=== PATIENT | female | born 2000 | race Hispanic/Latino ===

== ENCOUNTER 2019-01-25 19:28 | Emergency (ER) | payer OTHER ==
[~2019-01-25] VITALS: Ht 157.5 cm; Wt 52.7 kg
[2019-01-25] MEDS ORDERED: PRENMIS3 PO (19:38)
[2019-01-26] MEDS ORDERED: METOCLOPRAMIDE INJ 10MG/2ML VIAL (J2765) IV ONE (00:15)
[2019-01-26] MEDS ORDERED: ACETAMINOPHEN TAB 650MG DOSE (2X325MG) PO ONE (00:15)
[2019-01-26] MEDS ORDERED: NS 1,000 ML IV ONE (00:15)
[2019-01-26 02:14] VITALS: BP 108/55
[2019-01-26 02:28] LABS: APPEARANCE, URINE CLOUDY (CLEAR); BACTERIA, URINE AUTO 1+ (NEGATIVE); BILIRUBIN, URINE AUTO NEGATIVE (NEGATIVE); BLOOD, URINE BLOOD NEGATIVE (NEGATIVE); COLOR, URINE YELLOW (YELLOW); GLUCOSE, URINE (UA) AUTO NEGATIVE (NEGATIVE); KETONE, URINE AUTO 2+ mg/dL (NEGATIVE); LEUKOCYTE ESTERASE, URINE AUTO TRACE (NEGATIVE); MUCUS, URINE SMALL (NEGATIVE); NITRITE, URINE AUTO NEGATIVE (NEGATIVE); PROTEIN, URINE AUTO NEGATIVE (NEGATIVE); RBC, URINE AUTO 5 /HPF (0-3); SQUAMOUS EPITHELIAL CELL UR AU 13 /HPF (0-6); UROBILINOGEN, URINE AUTO 0.2 mg/dL (0.0-2.0); WBC, URINE AUTO 6 /HPF (0-3)
== END 2019-01-26 02:54 | disposition home or self-care (01) ==
LOC: M ED 19:28
DX: R51 Headache (principal)
CPT/HCPCS: 81001; 96374; 99284; J2765

== ENCOUNTER 2019-03-30 03:28 | Emergency (ER) | payer OTHER ==
[~2019-03-30] VITALS: Ht 157.5 cm; Wt 59.1 kg
[~2019-03-30 03:28] MED LIST: PRENMIS3 PO
[2019-03-30] MEDS ORDERED: ONDANSETRON 4MG/2ML VIAL (J2405) IV ONE (05:00)
[2019-03-30 05:16] LABS: HEMATOCRIT 37.3 % (36.0-47.0); HEMOGLOBIN 12.5 g/dl (12.0-15.5); MEAN CORPUSCULAR HEMOGLOBIN 30.1 pg (27.0-33.0); MEAN CORPUSCULAR HGB CONC 33.5 g/dl (32.0-36.5); MEAN CORPUSCULAR VOLUME 89.9 fl (80.0-96.0); PLATELET COUNT, AUTOMATED 188 10^3/uL (150-450); RED BLOOD COUNT 4.15 10^6/uL (4.00-5.40); WHITE BLOOD COUNT 11.9 10^3/uL (4.0-10.0)
[2019-03-30 05:21] LABS: AMORPHOUS SEDIMENT SMALL (NEGATIVE); APPEARANCE, URINE TURBID (CLEAR); BACTERIA, URINE AUTO NEGATIVE (NEGATIVE); BILIRUBIN, URINE AUTO NEGATIVE (NEGATIVE); BLOOD, URINE BLOOD NEGATIVE (NEGATIVE); COLOR, URINE YELLOW (YELLOW); GLUCOSE, URINE (UA) AUTO 1+ mg/dL (NEGATIVE); KETONE, URINE AUTO NEGATIVE (NEGATIVE); LEUKOCYTE ESTERASE, URINE AUTO NEGATIVE (NEGATIVE); NITRITE, URINE AUTO NEGATIVE (NEGATIVE); PROTEIN, URINE AUTO NEGATIVE (NEGATIVE); RBC, URINE AUTO 1 /HPF (0-3); SPECIFIC GRAVITY URINE AUTO 1.014 (1.002-1.035); SQUAMOUS EPITHELIAL CELL UR AU 2 /HPF (0-6); UROBILINOGEN, URINE AUTO 0.2 mg/dL (0.0-2.0); WBC, URINE AUTO 2 /HPF (0-3)
[2019-03-30] MEDS ORDERED: MORPHINE 2 MG/ML 1ML VIAL (J2270) IV PRN (05:30)
[2019-03-30] MEDS ORDERED: NS 1,000 ML IV ONE (05:30)
[2019-03-30 05:44] LABS: ALBUMIN 2.9 GM/DL (3.2-5.2); ALT/SGPT 29 U/L (12-78); BILIRUBIN,TOTAL 0.4 MG/DL (0.2-1.0); BLOOD UREA NITROGEN 8 MG/DL (7-18); CALCIUM LEVEL 8.7 MG/DL (8.5-10.1); CARBON DIOXIDE LEVEL 25 MEQ/L (21-32); CHLORIDE LEVEL 108 MEQ/L (98-107); CREATININE FOR GFR 0.72 MG/DL (0.55-1.30); GLUCOSE, FASTING 105 MG/DL (70-100); POTASSIUM SERUM 3.4 MEQ/L (3.5-5.1); SODIUM LEVEL 141 MEQ/L (136-145); TOTAL PROTEIN 6.7 GM/DL (6.4-8.2)
[2019-03-30] MEDS ORDERED: MORPHINE 4 MG/ML 1ML VIAL/SYRINGE (J2270) IV PRN (06:45)
--- NOTE | 2019-03-30 08:06 | REPVR ---
PROCEDURE INFORMATION: Exam: US , Limited Exam date and time: 03/30/2019 7:38 AM Age: 19 years old Clinical history: Pain; Other: RT abd; Gestational age or lmp: 26-27; ; Additional info: Right sided abd pain (renal, gallbladder, obs) TECHNIQUE: Imaging protocol: Real-time ultrasound of the maternal uterus with image documentation. Exam focused on the clinical indication. COMPARISON: No relevant prior studies available. FINDINGS: GESTATION: Gestation: Intrauterine gestation. Heart rate: heart rate 145 beats per minute. Presentation: Presentation breech. Amniotic fluid: Amniotic fluid index 8.6 cm. Placenta: Anterior, grade 1 without demonstrated previa or abruption. Breathin/2 Gross body movements: 2/2 tone: 2/2 Qualitative amniotic fluid: 2/2 Biophysical Profile Score: 8/8 DOPPLER: Umbilical artery Doppler: Umbilical artery S./D. ratio 2.3. MATERNAL: Cervix: Cervix closed, 3.6 cm in length. IMPRESSION: Single viable intrauterine gestation in breech presentation. Amniotic fluid index 8.6 cm. Electronically signed by: Clarke Giron On 03/30/2019 08:06:10 AM
--- NOTE | 2019-03-30 08:09 | REPVR ---
PROCEDURE INFORMATION: Exam: US Abdomen Complete Exam date and time: 03/30/2019 7:38 AM Age: 19 years old Clinical history: Abdominal pain; ; Additional info: Right sided abd pain (renal, gallbladder, obs) TECHNIQUE: Imaging protocol: Real-time ultrasound of the abdomen with image documentation. COMPARISON: No relevant prior studies available. FINDINGS: Liver: The liver is homogeneous in echotexture. No demonstrated mass or intrahepatic biliary ductal dilatation. Gallbladder: The gallbladder is without demonstrated stones, sludge or wall thickening, and there is no pericholecystic fluid. Sonographic Hernandez sign was not commented on. Common bile duct: The common bile duct is normal in size for a patient of this age at 3.3 mm. Pancreas: Visualized portions of the pancreas, not fully including the tail, are without demonstrated abnormality. Right kidney: The right kidney measures 11.1 x 5.0 x 5.3 cm. It is with mild hydronephrosis. No demonstrated stone, cyst or mass. Resistive index 0.71. Left kidney: The left kidney measures 11.1 x 6.1 x 5.9 cm. There is no hydronephrosis or demonstrated renal stone, cyst or mass. Resistive index 0.69. Spleen: The spleen is normal in length at 10.0 cm. Bladder: The urinary bladder demonstrates a left ureteral jet, with right ureteral jet not visualized. Aorta: The proximal to mid abdominal aorta is nonaneurysmal, with the distal portion obscured by bowel gas. Inferior vena cava: Present. IMPRESSION: Mild right hydronephrosis might the right ureteral jet not visualized in the urinary bladder. Electronically signed by: Clarke Giron On 03/30/2019 08:09:45 AM
[2019-03-30 08:36] VITALS: BP 108/54
[2019-03-30] MEDS ORDERED: MAPA500T2 PO (08:59)
== END 2019-03-30 08:38 | disposition admitted as inpatient to this hospital (09) ==
LOC: M ED 03:28
DX: O99.89 Other specified diseases and conditions complicating pregnancy, childbirth and the puerperium (principal); R10.9 Unspecified abdominal pain
CPT/HCPCS: 76700; 76815; 80053; 81001; 85027; 85460; 96374; 96375; 99284; J2270; J2405

== ENCOUNTER 2019-03-30 08:41 | Outpatient (CLI) | payer OTHER ==
[~2019-03-30] VITALS: Ht 157.5 cm; Wt 60.6 kg
[2019-03-30] MEDS ORDERED: MAPA500T2 PO (08:59)
[2019-03-30 09:04] VITALS: BP 122/64
--- NOTE | 2019-03-30 10:11 | IPNPDOC ---
Obstetrical Progress Note Date of Service Mar 30, 2019 Subjective 19yo at 26+3wks by LMP, EDC [id number]. Ms. Foster sent from ER for evaluation. Ms. Foster was seen in ER this morning for right flank pain. She received Morphine (total of 6mg) and still c/o 8/10 pain. She reports +FM, denies LOF/VB/CTX. Her has been uncomplicated thus far, possible marginal vs villamentous cord insertion (records pending from [facility]). O Positive blood type, NOB labs WNL. Objective O: VSS, Afebrile Labs drawn in ER reviewed and WNL (WBCs 11.9, Urine with + ketones, Chemistry WNL) Abdominal US reveals mild rightt hydronephrosis OB US WNL, OLGA 8.6, BPP 8/8 FHR 140s, moderate variability, + accels, no decels noted No CTX present or palpable Vital Signs Date Time Temp Pulse Resp B/P (MAP) Pulse Ox O2 Delivery O2 Flow Rate FiO2 03/30/19 09:04 99.2 75 18 122/64 (83) Room Air Assessment and Plan Status: Reassuring Additional Comments A: 19yo at 26+3wks with right side hydronephrosis. Reactive FHR tracing, labs and US WNL. After monitoring, pt reports that pain has resolved. P: Pt discharged home with pain precautions and education regarding hydronephrosis in . Pt to f/u during her regularly scheduled CHARLEY early April with me. She can return to ER or LND for worsening pain. THOM STACY CNM Mar 30, 2019 10:03
== END 2019-03-30 10:06 | disposition home or self-care (01) ==
LOC: M LDO 08:41
PROVIDERS: ATTEND Registered Nurse Maternal Newborn
DX: O26.832 Pregnancy related renal disease, second trimester (principal); N13.2 Hydronephrosis with renal and ureteral calculous obstruction; Z3A.26 26 weeks gestation of pregnancy
CPT/HCPCS: 59025; G0378; G0463

== ENCOUNTER → 2019-06-08 | Outpatient (CLI) | payer OTHER ==
[~2019-06-08] MED LIST changes: +MAPA500T2 PO
--- NOTE | 2019-06-09 05:30 | REP ---
Clinical: Growth evaluation Comparison: 03/30/2019 Findings: Examination demonstrates a single live intrauterine in cephalic presentation. motion is identified by technologist. Placenta is noted anterior and grade I I I without evidence for placenta previa or abruption. Amniotic fluid volume is normal. Cervix measures 3.9 cm in length and appears closed. No evidence for nuchal cord. Gestational age by LMP 36 weeks 3 days with GINA 07/03/2019 . Gestational age by current measurements 34 weeks 0 days with GINA 07/20/2019 . FHR equals 136 beats per minute. BPD 8.8 cm 35 weeks 2 days HC 30.7 cm 34 weeks 2 days AC 31.2 cm 35 weeks 1 day FL 6.3 cm 32 weeks 4 days (less than 5th percentile) HL 5.7 cm 33 weeks 0 days (less than 5th percentile) HC/AC ratio 0.99 Estimated weight 2404 grams ( 18th percentile). Amniotic fluid index: 11.3 cm Anatomical assessment demonstrates normal structures including cranium, choroid plexus, cavum, facial features, lungs, diaphragm, stomach, three-vessel cord, kidneys/bladder. Suboptimal evaluation of the posterior fossa, four-chamber heart, cord insertion, spine, and extremities due to positioning and advanced age. Impression: 1. Single live intrauterine in cephalic presentation. Biometrical measurements and weight as described above. 2. No gross anatomical abnormality noted. Electronically Signed by Julio Lombardo MD 06/09/2019 05:22 A
== END ==
LOC: M RAD 09:46
PROVIDERS: ATTEND Registered Nurse Maternal Newborn
DX: Z34.83 Encounter for supervision of other normal pregnancy, third trimester (principal); Z3A.36 36 weeks gestation of pregnancy

== ENCOUNTER → 2019-06-15 | Outpatient (CLI) | payer OTHER | LOC: M RAD 10:19 | PROVIDERS: ATTEND Registered Nurse Maternal Newborn | DX: Z53.9 Procedure and treatment not carried out, unspecified reason (principal) ==

== ENCOUNTER → 2019-06-17 | Outpatient (CLI) | payer OTHER ==
--- NOTE | 2019-06-17 12:44 | REP ---
Limited obstetric sonography: cord Doppler. History: Supervision of . IUGR. Comparison study for June 24, 2019 showed estimated weight in the 18th percentile. Findings: Scanning demonstrates a living cephalic intrauterine gestation. heart rate is recorded at 141 beats per minute. A grade 3 anterior placenta is seen without evidence of previa. Amniotic fluid is subjectively normal. OLGA is normal 11.0 cm. The umbilical cord is seen draping across the shoulders. SD ratio in the umbilical cord artery by Doppler is normal at 2.64 (1.60-2.60). Electronically Signed by Harsha Joseph MD 06/17/2019 12:36 P
== END ==
LOC: M RAD 11:44
PROVIDERS: ATTEND Registered Nurse Maternal Newborn
DX: O36.5930 Maternal care for other known or suspected poor fetal growth, third trimester, not applicable or unspecified (principal); Z3A.37 37 weeks gestation of pregnancy

== ENCOUNTER 2019-06-22 13:56 | Inpatient (IN) | payer OTHER ==
[~2019-06-22] VITALS: Ht 157.5 cm; Wt 74.9 kg
[2019-06-22 14:15] VITALS: BP 117/74
[2019-06-22] MEDS: LR 1,000 ML IV SCH (15:32)
[2019-06-22 15:46] LABS: HEMOGLOBIN 10.5 g/dl (12.0-15.5); MEAN CORPUSCULAR HEMOGLOBIN 28.2 pg (27.0-33.0); MEAN CORPUSCULAR HGB CONC 32.8 g/dl (32.0-36.5); PLATELET COUNT, AUTOMATED 165 10^3/uL (150-450); RED BLOOD COUNT 3.72 10^6/uL (4.00-5.40); WHITE BLOOD COUNT 6.7 10^3/uL (4.0-10.0)
--- NOTE | 2019-06-22 16:17 | HPEPDOC ---
Obstetrical History & Physical General Date of Admission Jun 22, 2019 at 13:56 History of Present Illness Patient is a 19 yo G1 @ 38+2 wks gestation with diagnosis of IUGR and elevated SD ratio presents for IOL per MFM recommendation. today without concerns. denies regular ctx. 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 BREAST: . ABDOMEN: Gravid and non-tender to touch. FETUS: Is vertex (VTX) by sterile vaginal examination (SVE), fetus is vertex (VTX) by Santy. HEART RATE: Regular rate and rhythm. LUNGS: Clear to auscultation (CTA). EXTREMITIES: No edema/erythema/tenderness EFW: 2700gm Vital Signs/I&O Vital Signs Date Time Temp Pulse Resp B/P (MAP) Pulse Ox O2 Delivery O2 Flow Rate FiO2 06/22/19 14:15 98.4 83 18 117/74 (88) Laboratory Data 24H LABS Laboratory Tests 2 06/22/19 14:05: Serology Scanned Report Hepatitis B Testing 06/22/19 15:34: Nucleated Red Blood Cells % (auto) 0.0 CBC/BMP Laboratory Tests 06/22/19 15:34 Pertinent Laboratoy Data Blood Type: O+ RBC Antibody Screen: Negative HIV: Negative Hepatitis B: Negative Rapid Plasma Reagin: Nonreactive Rubella: Immune Chlamydia/Gonorrhea: Positive Group B Streptococcus: Negative Anatomy Ultrasound Placenta Location: Anterior (velamentous cord insertion) Normal Anatomy: Yes Placenta Previa: No Vaginal Examination Dilation: None Effacement: other (closed) Station: -3 Cervical Consistency: Firm Cervical Position: Posterior Presentation: Cephalic presentation Assessment Heart Rate (FHR): 140 Variability: Moderate Accelerations: Positive Decelerations: None Tocometer Contractions: No Assessment/Plan Assessment patient is a 19 yo G1 @38+2wks gestation admitted to l&d for IOL for IUGR with elevated S/D ratio per [facility] recommendation. discussed with patient 38wks baby still has small chance of lung immaturity, though with concern for baby's growth it is recommended to induce her today. NST at clinic shows episodic decels. Discussed external as well as internal monitoring with patient. Risks of emergent delivery, infection requiring iv antibiotics and prolong hospital stay, bleeding needing blood transfusion and associated risks, use of forceps or vacuum for operative vaginal delivery in an emergency or for maternal exhaustion, and episiotomy discussed with patient. Plan Admit and orient. Magistrate Assistant and consent. Diet: clears Group B Streptococcus (GBS) neg Labs and intravenous (IV) per unit protocol. cytotec, mota bulb, pit and arom as needed for induction of labor. anesthesia consult pelvis adequate for trial of labor. IRAIDA KAY DO Jun 22, 2019 16:17
[2019-06-22] MEDS: miSOPROStol 25 MCG 1/4 TAB (S0191) SL SCH ×2 (16:30→20:57)
[2019-06-22 17:04] VITALS: BP 116/64
[2019-06-22 18:27] VITALS: BP 120/56
[2019-06-22 20:29] VITALS: BP 129/74
[2019-06-22 20:36] VITALS: BP 127/67
[2019-06-23] VITALS (10 sets, daily range): BP systolic 114–150; BP diastolic 50–85
--- NOTE | 2019-06-23 01:07 | IPNPDOC ---
Text Note Date of Service The patient was seen on 06/23/19. NOTE patient received cytotec 25mcg x 2. not feeling painful contractions. report she felt leakage of fluids. vitals: normal laying in bed fht: 140/mod hamida/pos accel/no decel toco: ctx q 7mins ce: fingertip/long/high grossly ruptured a/p patient not in labor, PROM. redose cytotec 50mcg. recheck in 4hrs. VS,Fishbone, I+O VS, Fishbone, I+O Laboratory Tests 06/22/19 15:34 Vital Signs Date Time Temp Pulse Resp B/P (MAP) Pulse Ox O2 Delivery O2 Flow Rate FiO2 06/22/19 18:27 99.2 91 18 120/56 (77) IRAIDA KAY DO Jun 23, 2019 01:07
[2019-06-23] MEDS ORDERED: miSOPROStol 25 MCG 1/4 TAB (S0191) SL ONE (01:15)
[2019-06-23] MEDS ORDERED: miSOPROStol 50 MCG 1/2 TAB (S0191) SL ONE ×2 (01:15→06:30)
[2019-06-23] MEDS: LR 1,000 ML IV SCH (01:29)
[2019-06-23] MEDS ORDERED: BUTORPHANOL 2 MG/ML INJ (J0595) IV ONE (03:00)
[2019-06-23] MEDS ORDERED: PROMETHAZINE INJ 25 MG/ML VIAL (J2550) IV ONE ×2 (03:00→06:30)
[2019-06-23] MEDS ORDERED: MORPHINE 10 MG/ML 1ML VIAL (J2270) IV ONE (06:30)
[2019-06-23] MEDS ORDERED: MORPHINE 10 MG/ML 1ML VIAL (J2270) IM ONE (06:30)
--- NOTE | 2019-06-23 08:25 | IPNPDOC ---
Text Note Date of Service The patient was seen on 06/23/19. NOTE Intrapartum Note I assumed care of Olivia this morning at 0730. In brief, she is a 19yo G1 @ 38w2d with diagnosis of IUGR and elevated SD ratio who had IOL begun yesterday afternoon per [facility] recommendation. When IOL was started she was closed/thick/high. She received 2 doses of cytotec, had some morphine rest during the night. Was grossly ruptured on most recent exam at 0500 when she was only fingertip dilated. She is having pain with contractions, breathing through them well, would like an epidural. Vitals show normotensive to intermittent mild range bps, afebrile SCE: 6/90/-1, bloody show noted Cat I FHRT with +accels, mod hamida, -decels [place]: ctx q2-4min Will continue to closely observe, patient is making excellent progress on her own Patient would like epidural so will perform fluid bolus and notify anesthesia Plan to recheck in 2-4hr or earlier as indicated Safe to proceed Dr. Ghislaine Coker MD VS,Phoebe, I+O VSPhoebe I+O Laboratory Tests 06/22/19 15:34 Vital Signs Date Time Temp Pulse Resp B/P (MAP) Pulse Ox O2 Delivery O2 Flow Rate FiO2 06/23/19 03:08 18 06/23/19 01:14 97.8 78 123/85 (98) Ghislaine Coker MD Jun 23, 2019 08:25
[2019-06-23] MEDS ORDERED: OXYTOCIN 30 UNITS IN 0.9% NaCl 500ML IV BAG (J2590) As Ordered ONE (09:32)
[2019-06-23] MEDS ORDERED: OXYTOCIN DRIP 30 UNITS in IV 1 EA IV SCH (09:53)
[2019-06-23] MEDS ORDERED: ACETAMINOPHEN TAB 650MG DOSE (2X325MG) PO PRN (10:00)
[2019-06-23] MEDS ORDERED: DIBUCAINE 1% OINTMENT 30GM TOP PRN (10:00)
[2019-06-23] MEDS ORDERED: RHOGAM 300 MCG (1500 IU) INJ (J2790) IM SCH (10:00)
[2019-06-23] MEDS ORDERED: MEASLES,MUMPS,RUBELLA VACCINE INJ (MMR-II) (90707) SC SCH (10:00)
[2019-06-23] MEDS ORDERED: LIDOCAINE 1% MDV 20ML VIAL INFIL ONE (10:00)
[2019-06-23] MEDS ORDERED: IBUPROFEN 600 MG TAB PO PRN (10:00)
[2019-06-23] MEDS ORDERED: DOCUSATE SODIUM 100 MG CAP PO PRN (10:00)
--- NOTE | 2019-06-23 10:00 | DNPDOC ---
[facility] Delivery Note Delivery Note DATE OF DELIVERY: PREDELIVERY DIAGNOSIS: -/7 weeks' gestation and labor. POST DELIVERY DIAGNOSIS: Delivered. PROCEDURE: [Spontaneous vaginal delivery/ section]. AUTOMOTIVE PRODUCT SPECIALIST: . ANESTHESIA: . ESTIMATED BLOOD LOSS: mL. FINDINGS: pound ounce , Score /, nuchal cord times . DELIVERY SUMMARY: Olivia is a 19yo [id number] s/p uncomplicated at 0929 on 06/23/2019 after undergoing IOL at 38w2d for IUGR with elevated S/D ratio. She received 2 doses of oral cytotec and proceeded into active labor, had SROM, clear and progressed to C/C/+2 at which point she began pushing. Infant's head delivered OA, restituted FEDERICO. One loose nuchal cord reduced. Left anterior shoulder delivered followed by posterior shoulder and corpus. Infant was vigorous with spontaneous cry, placed on maternal abdomen and cord was clamped x2 and cut by FOB after approximately 2 minutes. Infant's nose and mouth were suctioned with bulb suction. Apgars 7/9. Cord blood obtained for MBT O pos. With traction on the umbilical cord and uterine massage, placenta delivered spontaneously and intact with 3 vessel centrally inserted cord. More uterine massage was performed and fundus was then firm at u-1cm. IV pitocin given per protocol. Inspection of perineum and vagina revealed small superficial bilateral labial abrasions that were not bleeding- the right side was repaired with a single figure of 8 using 3-0 vicryl to avoid the right and left sealing together. There was also a small 1mll that was only inside of the vagina, repaired in routine fashion with 3-0 vicryl with excellent reapproximation and total hemostasis noted. All counts correct x2. Mom and were doing well when I left the room. MD John Paul Ware Katrina D MD Jun 23, 2019 10:00
[2019-06-23] MEDS: IBUPROFEN 800 MG TAB PO PRN (20:14)
[2019-06-24 05:40] VITALS: BP 109/57
[2019-06-24] MEDS: PRENATAL VITAMINS CHEWABLE TABLET PO SCH (07:45)
--- NOTE | 2019-06-24 07:54 | IPNPDOC ---
Progress Note Date of Service: Jun 24, 2019 Day#: 1 Progress Note PPD 1 SUBJECT: Olivia is a 19yo [id number] s/p uncomplicated on 06/23 after undergoing IOL for IUGR, doing well day # 1. She has been ambulating, voiding spontaneously without issue and tolerating regular diet. Breast feeding without issue. Reports lochia is like a normal period. No f/c/n/v/CP/SOB. OBJECTIVE: VITAL SIGNS: Within normal limits, afebrile. Alert and oriented times three. Abdomen: Fundus firm at U-2. Soft, NTTP. Extremities: no edema of BLE ASSESSMENT: Olivia is a 19yo [id number] s/p uncomplicated on 06/23 after undergoing IOL for IUGR, doing well day # 1. Vitals within normal limits, afebrile, hemodynamically stable with no evidence of infection. PLAN: 1. Routine care 2. Tylenol and Motrin for pain. 3. Encourage breast feeding and ambulation. 4. unsure of contraception 5. regular diet 6. possible discharge home tomorrow if meeting all milestones Dr. Ghislaine Coker MD VS, I&O, 24H, Fishbone Vital Signs/I&O Vital Signs Date Time Temp Pulse Resp B/P (MAP) Pulse Ox O2 Delivery O2 Flow Rate FiO2 06/23/19 17:50 99.8 118 16 114/50 (71) I&O- Last 24 Hours up to 6 AM 06/24/19 06:00 Intake Total 4374 ml Output Total 1000 ml Balance 3374 ml Ghislaine Coker MD Jun 24, 2019 07:54
[2019-06-24] MEDS: ACETAMINOPHEN 500 MG TAB PO PRN ×2 (11:50→17:39)
[2019-06-24 18:00] VITALS: BP 127/58
[2019-06-25] MEDS: IBUPROFEN 800 MG TAB PO PRN (03:58)
[2019-06-25 05:28] VITALS: BP 113/83
[2019-06-25] MEDS: PRENATAL VITAMINS CHEWABLE TABLET PO SCH (08:52)
--- NOTE | 2019-06-25 09:49 | IPNPDOC ---
Progress Note Date of Service: Jun 25, 2019 Day#: 2 Progress Note SUBJECT: patient is a 19yo [id number] s/p uncomplicated on 06/23 after unde rgoing IOL for IUGR, doing well day # 2. She has been ambulating, voiding spontaneously without issue and tolerating regular diet. Breast feeding without issue. Reports lochia is like a normal period. No f/c/n/v/CP/SOB. undecided on contraceptive options. OBJECTIVE: VITAL SIGNS: Within normal limits, afebrile. Alert and oriented times three. Abdomen: Fundus firm at U-2. Soft, NTTP. Extremities: no edema of BLE a/p patient is ppd #2, doing well. discussed contraceptive options and patient is undecided. will readdress at visit. routine ppc. con leave form filled and given to patient. d/c home today. VS, I&O, 24H, Fishbone Vital Signs/I&O Vital Signs Date Time Temp Pulse Resp B/P (MAP) Pulse Ox O2 Delivery O2 Flow Rate FiO2 06/25/19 05:28 98.1 64 18 113/83 (93) 99 06/24/19 18:00 Room Air IRAIDA KAY DO Jun 25, 2019 09:49
--- NOTE | 2019-06-25 09:54 | OBDS ---
[facility] Obstetrical Discharge Sum. Obstetrical Discharge Summary Scientific Programmer/Provider: Ghislaine Coker MD Date: Jun 25, 2019 : 1 Term: 1 Pre-term: 0 Abortions: 0 Livin VDRL: Non-Reactive Rh: Positive Rubella: Immune Infant Sex: Male Weight: grams (2580) A/P, Post Course List any complications Admission diagnosis: 1. Gravid at 38+3wks 2. IUGR with elevated S/D ratio Discharge diagnosis: () Condition at Discharge: stable Discharge Instructions: Home Activity: as tolerated Diet: regular Medications: filled at [facility] Follow-up: 2 weeks Hospital course: Patient admitted at 38+3wks for inductions of labor secondary to IUGR and elevated S/D ratio. She progressed to have normal vaginal delivery. course uncomplicated and patient discharged on hospital day #2. IRAIDA KAY DO Jun 25, 2019 09:54
== END 2019-06-25 16:55 | disposition home or self-care (01) | DRG 807 ==
LOC: M LDI 13:56 → M OBS 06-23 12:45
PROVIDERS: ADMIT Obstetrics & Gynecology; ATTEND Obstetrics & Gynecology
PROC: 3E033VJ Introduction of Other Hormone into Peripheral Vein, Percutaneous Approach (ICD-10-PCS; 2019-06-22)
PROC: 10E0XZZ Delivery of Products of Conception, External Approach (ICD-10-PCS; principal; 2019-06-23)
PROC: 0HQ9XZZ Repair Perineum Skin, External Approach (ICD-10-PCS; 2019-06-23)
DX: O36.5930 Maternal care for other known or suspected poor fetal growth, third trimester, not applicable or unspecified (principal); Z37.0 Single live birth; Z3A.38 38 weeks gestation of pregnancy; O42.02 Full-term premature rupture of membranes, onset of labor within 24 hours of rupture; O69.81X0 Labor and delivery complicated by cord around neck, without compression, not applicable or unspecified; O70.0 First degree perineal laceration during delivery

== ENCOUNTER 2020-05-04 16:52 | Emergency (ER) | payer OTHER ==
[~2020-05-04] VITALS: Ht 157.5 cm; Wt 59.4 kg
[2020-05-04 18:25] LABS: BASO % 0.1 % (0.0-1.0); EOS # 0.1 10^3/uL (0.0-0.5); EOS % 0.6 % (0.0-3.0); HEMATOCRIT 46.8 % (36.0-47.0); HEMOGLOBIN 15.1 g/dl (12.0-15.5); LYMPH # 1.7 10^3/uL (1.5-5.0); LYMPH % 17.2 % (24.0-44.0); MEAN CORPUSCULAR HGB CONC 32.3 g/dl (32.0-36.5); MEAN CORPUSCULAR VOLUME 86.8 fl (80.0-96.0); MONO # 0.6 10^3/uL (0.0-0.8); MONO % 5.9 % (0.0-5.0); NEUTROPHILS # 7.3 10^3/uL (1.5-8.5); NEUTROPHILS % 76.1 % (36.0-66.0); PLATELET COUNT, AUTOMATED 243 10^3/uL (150-450); RED BLOOD COUNT 5.39 10^6/uL (4.00-5.40); WHITE BLOOD COUNT 9.6 10^3/uL (4.0-10.0)
[2020-05-04] MEDS ORDERED: KETOROLAC TROMETHAMINE 10 MG TAB PO ONE (18:45)
[2020-05-04 18:48] LABS: ALBUMIN 4.4 GM/DL (3.2-5.2); BILIRUBIN,DIRECT 0.3 MG/DL (0.0-0.2); BILIRUBIN,TOTAL 1.1 MG/DL (0.2-1.0)
--- NOTE | 2020-05-04 19:53 | REPVR ---
PROCEDURE INFORMATION: Exam: US Abdomen, Limited; Right Upper Quadrant Exam date and time: 05/04/2020 7:16 PM Age: 20 years old Clinical indication: Abdominal pain; Other: Ruq; Additional info: Ruq pain TECHNIQUE: Imaging protocol: US abdomen. Real time ultrasound with image documentation. Limited exam focused on the right upper quadrant. COMPARISON: ABD COMPLETE US 03/30/2019 7:20 AM FINDINGS: Liver: The liver is normal in size and echogenicity. Gallbladder: Junctional fold incidentally noted in the gallbladder. No gallstones, sludge, pericholecystic fluid. Gallbladder wall thickness is normal at 1.5 mm. Common bile duct: Common bile duct measures 4 mm, within normal limits. Pancreas: The pancreas is poorly visualized because of shadowing bowel gas. Right kidney: The right kidney is normal, measuring 9.9 x 4.4 x 3.4 cm. No hydronephrosis. 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 No echogenic shadowing foci to suggest renal calculi. Intraperitoneal space: No free fluid. IMPRESSION: 1. No acute findings. No cholelithiasis or evidence of cholecystitis. Electronically signed by: Areli Hernandez On 05/04/2020 19:54:03 PM
[2020-05-04] MEDS ORDERED: ISOVUE-370 76% 100ML VIAL As Ordered ONE (20:11)
--- NOTE | 2020-05-04 21:09 | REPVR ---
PROCEDURE INFORMATION: Exam: CT Abdomen And Pelvis With Contrast Exam date and time: 05/04/2020 8:15 PM Age: 20 years old Clinical indication: Abdominal pain; Localized; Right upper quadrant (ruq); Additional info: Ruq pain TECHNIQUE: Imaging protocol: Computed tomography of the abdomen and pelvis with intravenous contrast. Radiation optimization: All CT scans at this facility use at least one of these dose optimization techniques: automated exposure control; mA and/or kV adjustment per patient size (includes targeted exams where dose is matched to clinical indication); or iterative reconstruction. Contrast material: ISOVUE 370; Contrast volume: 100 ml; Contrast route: INTRAVENOUS (IV); COMPARISON: GALLBLADDER US 05/04/2020 7:20 PM FINDINGS: Liver: Normal. No mass. Gallbladder and bile ducts: Normal. No calcified stones. No ductal dilation. Pancreas: Normal. No ductal dilation. Spleen: Normal. No splenomegaly. Adrenal glands: Normal. No mass. Kidneys and ureters: Nonobstructing calyceal stone in the right kidney. No ureteral stones or hydronephrosis. No renal masses. Stomach and bowel: Mild intraluminal fluid and mucosal enhancement are noted in the small bowel. No wall thickening or other inflammatory changes. No bowel obstruction. The stomach and colon are unremarkable. Appendix: No evidence of appendicitis. Intraperitoneal space: Unremarkable. No free air. No significant fluid collection. Vasculature: Unremarkable. No abdominal aortic aneurysm. Lymph nodes: Unremarkable. No enlarged lymph nodes. Urinary bladder: Unremarkable as visualized. Reproductive: Small physiologic cysts and follicles in the ovaries. No adnexal mass or hydrosalpinx. Uterus and adnexa are otherwise unremarkable. Bones/joints: Unremarkable. No acute fracture. Soft tissues: Unremarkable. IMPRESSION: Mild mucosal enhancement and intraluminal fluid in the small bowel is nonspecific but may indicate a viral enteritis. No obstruction. Electronically signed by: Maikol Cortes On 05/04/2020 21:09:50 PM
[2020-05-04] MEDS ORDERED: ONDA4TAB6 PO (21:50)
[2020-05-04 22:12] VITALS: BP 112/66
== END 2020-05-04 22:15 | disposition home or self-care (01) ==
LOC: M ED 16:52
DX: A08.4 Viral intestinal infection, unspecified (principal)
CPT/HCPCS: 36415; 74177; 76705; 80047; 80076; 83690; 84702; 85025; 99284; Q9967